=== PATIENT | female | born 1945 | race Caucasian/White ===

== ENCOUNTER → 2017-01-05 | Outpatient (CLI) | payer BC ==
[~2017-01-05] MED LIST: ALEN70TA2 PO; ASCA500 PO; ASPI1TAB83 PO; ATOR-26 PO; CALC600T PO; CHOL2000 PO; ESCI1TAB10 PO; FERR325T51 PO; MULT-506 PO; PRLSR20 PO; TRAZ100T29 PO; TRIA3AER NAE; VITATAB19 PO; ZINC1TAB PO; [UNRECOGNIZED DRUG - CODE] PO
--- NOTE | 2017-01-05 15:19 | MAMMOGRAPHY REPORT ---
BILATERAL DIGITAL SCREENING MAMMOGRAM TOMOSYNTHESIS WITH CAD: 01/05/2017 CLINICAL HISTORY: Asymptomatic. Personal history of breast cancer. TECHNIQUE: Breast tomosynthesis in addition to standard 2D mammography was performed. Current study was also evaluated with a Computer Aided Detection (CAD) system. COMPARISON: Comparison is made to exams dated: 12/18/2015 mammogram, 12/16/2013 mammogram, 12/17/2014 mammogram, 12/13/2012 mammogram, 02/02/2012 mammogram, and 01/31/2011 mammogram - [facility]. BREAST COMPOSITION: The tissue of both breasts is extremely dense, which lowers the sensitivity of mammography. FINDINGS: No suspicious masses, calcifications, or areas of architectural distortion are noted in e ither breast. There has been no significant interval change compared to prior exams. There are stab le postsurgical changes in the left upper outer quadrant from prior lumpectomy. Linear scar markers denote scars on the left upper outer breast as well as right medial and lateral breast. A biopsy m arker clip is again noted in the right upper outer quadrant. IMPRESSION: ACR BI-RADS CATEGORY 2: BENIGN There is no mammographic evidence of malignancy. A 1 year screening mammogram is recommended. The p atient will receive written notification of the results. Approximately 10% of breast cancers are not detected with mammography. A negative mammographic repor t should not delay biopsy if a clinically suggestive mass is present. Kristal Shaw M.D. /:01/05/2017 15:01:42 Research Anthropologist: Pearl JACOB(Johanny)(Mariah), [facility] letter sent: Normal 1/2 BI-RADS Code: ACR BI-RADS Category 2: Benign
== END | disposition home or self-care (01) ==
LOC: C.MAMM 12:03
PROVIDERS: ATTEND Nurse Practitioner
DX: Z12.31 Encounter for screening mammogram for malignant neoplasm of breast (principal); Z85.3 Personal history of malignant neoplasm of breast

== ENCOUNTER → 2017-02-21 | Outpatient (CLI) | payer BC ==
[2017-02-21 18:02] LABS: BLOOD UREA NITROGEN 16 mg/dl (7-18)
== END | disposition home or self-care (01) ==
LOC: C.LABBFT 13:21
PROVIDERS: ATTEND Psychiatry & Neurology Neurology
DX: R94.02 Abnormal brain scan (principal); I67.9 Cerebrovascular disease, unspecified; R26.89 Other abnormalities of gait and mobility

== ENCOUNTER → 2017-02-24 | Outpatient (CLI) | payer BC ==
[~2017-02-24] MED LIST changes: +GADAVIST IV PRN
--- NOTE | 2017-02-24 12:37 | DIAGNOSTIC IMAGING REPORT ---
MRI OF THE BRAIN WITHOUT AND WITH IV CONTRAST CLINICAL HISTORY: ABNORMAL BRAIN SCAN; CEREBERAL VASCULAR DISEASE; COMPARISON STUDY: No previous studies for comparison. TECHNIQUE: Utilizing a 1.5 Elaine magnet and dedicated coil, multiplanar, multiecho imaging of the brain was performed pre and postcontrast administration. IV administration of 8.5 mL of Gadavist contrast was uneventful. FINDINGS: Unchanged exam compared to the prior study. Small right parafalcine 4 mm nodular density unchanged from the prior study. No new or interval findings. No additional enhancing foci. The ventricular system is midline. Internal artery canals are symmetric. IMPRESSION: Stable exam compared to several prior MRI exams. Unchanging 4 mm right para Falcine nodular density. No new or interval findings. Electronically signed by: Harsh Sofia M.D. 02/24/2017 12:35 PM Dictated Date/Time: 02/24/2017 12:31 PM
== END | disposition home or self-care (01) ==
LOC: C.MRI 11:28
PROVIDERS: ATTEND Psychiatry & Neurology Neurology
DX: I67.9 Cerebrovascular disease, unspecified (principal); R26.89 Other abnormalities of gait and mobility; R94.02 Abnormal brain scan

== ENCOUNTER → 2017-10-05 | Outpatient (CLI) | payer BC ==
[~2017-10-05] MED LIST changes: -GADAVIST IV PRN
[2017-10-05 13:18] LABS: CHOLESTEROL/HDL RATIO 2.6
== END | disposition home or self-care (01) ==
LOC: C.LABBFT 11:11
PROVIDERS: ATTEND Physician Assistant Medical
DX: I67.9 Cerebrovascular disease, unspecified (principal)

== ENCOUNTER → 2017-11-20 | Outpatient (CLI) | payer BC ==
[2017-11-20 17:17] LABS: BASO % 0.4 %; BASO ABS # 0.03 K/uL (0-0.2); EOS ABS # 0.14 K/uL (0-0.5); IG# 0.02 K/uL (0.00-0.02); LYMPH % 25.3 %; LYMPH ABS # 1.75 K/uL (1.2-3.4); MEAN CELL VOLUME 98.9 fL (80-100); MEAN CORPUSCULAR HEMOGLOBIN 32.2 pg (25-34); MEAN CORPUSCULAR HGB CONC 32.6 g/dl (32-36); MEAN PLATELET VOLUME 10.1 fL (7.4-10.4); MONO % 8.7 %; NEUT % 63.3 %; NEUT ABS # 4.39 K/uL (1.4-6.5); PLATELET COUNT 224 K/uL (130-400); RED CELL DISTRIBUTION WIDTH CV 14.4 % (11.5-14.5); WHITE BLOOD COUNT 6.93 K/uL (4.8-10.8)
[2017-11-20 17:40] LABS: ALBUMIN 3.6 gm/dl (3.4-5.0); ALKALINE PHOSPHATASE 52 U/L (45-117); ALT/SGPT 32 U/L (12-78); AST/SGOT 23 U/L (15-37); BLOOD UREA NITROGEN 20 mg/dl (7-18); CALCIUM 8.4 mg/dl (8.5-10.1); CARBON DIOXIDE 31 mmol/L (21-32); CHOLESTEROL 143 mg/dl (0-200); CREATININE 1.05 mg/dl (0.60-1.20); GLUCOSE 106 mg/dl (70-99); LDL CHOLESTEROL CALCULATED 59 mg/dl; POTASSIUM 4.1 mmol/L (3.5-5.1); SODIUM 141 mmol/L (136-145); TOTAL PROTEIN 6.5 gm/dl (6.4-8.2); TRANSFERRIN 233 mg/dl (200-360)
[2017-11-21 06:16] LABS: HEMOGLOBIN A1C 5.2 % (4.5-5.6)
== END | disposition home or self-care (01) ==
LOC: C.LABBFT 14:48
PROVIDERS: ATTEND Physician Assistant Medical
DX: D64.9 Anemia, unspecified (principal); R73.01 Impaired fasting glucose; M81.0 Age-related osteoporosis without current pathological fracture

== ENCOUNTER → 2017-11-20 | Outpatient (CLI) | payer BC ==
--- NOTE | 2017-11-20 15:49 | DIAGNOSTIC IMAGING REPORT ---
RIGHT KNEE 2 VIEWS CLINICAL HISTORY: Right knee pain. FINDINGS: AP and lateral views of the right knee are obtained. No prior studies are available for comparison at the time of dictation. The skeletal structures are osteopenic. No fracture is seen. There is mild to moderate tricompartmental degenerative joint space narrowing, greatest at the patellofemoral articulation. There is no joint effusion. A calcification is present in the suprapatellar space may represent a joint body. The overlying soft tissues are within normal limits. IMPRESSION: Osteopenia and arthritic change as above. No acute bony abnormality is seen in the right knee. Electronically signed by: Boston Bella M.D. 11/20/2017 3:48 PM Dictated Date/Time: 11/20/2017 3:46 PM
== END | disposition home or self-care (01) ==
LOC: C.RAD1850 15:33
PROVIDERS: ATTEND Physician Assistant Medical
DX: M25.569 Pain in unspecified knee (principal)

== ENCOUNTER → 2018-01-08 | Outpatient (CLI) | payer BC ==
--- NOTE | 2018-01-09 14:59 | MAMMOGRAPHY REPORT ---
BILATERAL DIGITAL SCREENING MAMMOGRAM TOMOSYNTHESIS WITH CAD: 01/08/2018 CLINICAL HISTORY: Asymptomatic. Personal history of breast cancer. TECHNIQUE: Breast tomosynthesis in addition to standard 2D mammography was performed. Current study was also evaluated with a Computer Aided Detection (CAD) system. COMPARISON: Comparison is made to exams dated: 01/05/2017 mammogram, 12/18/2015 mammogram, 12/17/2014 m ammogram, 12/16/2013 mammogram, 12/13/2012 mammogram, and 02/02/2012 mammogram - [facility]. BREAST COMPOSITION: The tissue of both breasts is extremely dense, which lowers the sensitivity of m ammography. FINDINGS: No suspicious masses, calcifications, or areas of architectural distortion are noted in ei ther breast. There has been no significant interval change compared to prior exams. There are stable postsurgical changes bilaterally. A biopsy marker clip is again noted within the right upper outer quadrant. IMPRESSION: ACR BI-RADS CATEGORY 2: BENIGN There is no mammographic evidence of malignancy. A 1 year screening mammogram is recommended. The pa tient will receive written notification of the results. Approximately 10% of breast cancers are not detected with mammography. A negative mammographic report should not delay biopsy if a clinically suggestive mass is present. Kristal Shaw M.D. /:01/08/2018 14:33:43 Water Filterer Helper: Micki JACOB(Johanny)(M), [facility] letter sent: Normal 1/2 BI-RADS Code: ACR BI-RADS Category 2: Benign
== END | disposition home or self-care (01) ==
LOC: C.MAMM 12:06
PROVIDERS: ATTEND Nurse Practitioner
DX: Z12.31 Encounter for screening mammogram for malignant neoplasm of breast (principal)

== ENCOUNTER → 2018-03-01 | Outpatient (CLI) | payer BC ==
--- NOTE | 2018-03-01 08:44 | DIAGNOSTIC IMAGING REPORT ---
THYROID ULTRASONOGRAPHY CLINICAL HISTORY: Multinodular thyroid gland status post right thyroidectomy COMPARISON STUDY: 11/20/2014 FINDINGS: The right lobe of the thyroid is surgically absent. The left lobe measures 43 x 15 x 12 mm. There is a multinodular left lobe with multiple hypoechoic nodules demonstrating colloid artifact. The largest measures 4 x 4 x 3 mm. IMPRESSION: 1. Surgically absent right lobe of the thyroid 2. Stable multinodular left lobe. Electronically signed by: Parag Kee M.D. 03/01/2018 8:43 AM Dictated Date/Time: 03/01/2018 8:41 AM
--- NOTE | 2018-03-01 09:06 | DIAGNOSTIC IMAGING REPORT ---
(CHEST) THORAX WITHOUT CLINICAL HISTORY: I77.810 Ascending aorta [id number] COMPARISON STUDY: 09/14/2016 CT DOSE: 209.85 mGy.cm TECHNIQUE: CT of the thorax was performed from the thoracic inlet to the lung bases. Images are reviewed in the axial, sagittal, and coronal planes. IV contrast was not administered for this examination. A dose lowering technique was utilized adhering to the principles of ALARA. FINDINGS: Thyroid: The right lobe of the thyroid appears absent. Thoracic aorta: There is mild dilatation of the ascending thoracic aorta which measures 38 mm. Heart: There are mild coronary artery calcifications. The heart is mildly enlarged. There is prominence of central pulmonary arteries raising the possibility of pulmonary hypertension Lungs and pleural spaces: There are no significant pleural effusions. There is no focal pulmonary consolidation.. There is scattered bilateral subcentimeter pulmonary nodules measuring up to 4 mm. These remain similar to the preceding study. Mediastinum: There is no mediastinal lymphadenopathy. Lilibeth: There is no evidence of pathologic hilar adenopathy given the limitations of a noncontrast study. Axilla: There is no evidence of pathologic axillary lymphadenopathy Upper abdomen: Central hepatic masses measuring up to 25 mm in diameter remains unchanged Skeletal structures: There are no lytic or blastic osseous lesions. IMPRESSION: 1. Stable mild dilatation of the ascending thoracic aorta which measures 38 mm 2. Stable subpleural reticulation 3. Stable subcentimeter pulmonary nodules 4. Stable hepatic masses 5. Surgically absent right lobe of the thyroid Electronically signed by: Parag Kee M.D. 03/01/2018 9:04 AM Dictated Date/Time: 03/01/2018 8:54 AM
== END | disposition home or self-care (01) ==
LOC: C.CTS 08:01
PROVIDERS: ATTEND Internal Medicine
DX: I77.810 Thoracic aortic ectasia (principal); E04.1 Nontoxic single thyroid nodule